=== PATIENT | male | born 1990 | race African-American/Black ===

== ENCOUNTER 2018-03-20 20:53 | Inpatient (IN) | payer OTHER ==
[2018-03-20 21:30] VITALS: BMI 24.3
--- NOTE | 2018-03-21 01:32 | HP ---
CIWA Score - Admission Criteria [facility] Guidelines: Admission for Medically Managed Detox: Requires at least one of the followin. CIWA greater than 12 2. Seizures within the past 24 hours 3. Delirium tremens within the past 24 hours 4. Hallucinations within the past 24 hours 5. Acute intervention needed for co occurring medical disorder 6. Acute intervention needed for co occurring psychiatric disorder 7. Severe withdrawal that cannot be handled at a lower level of care (continued vomiting, continued diarrhea, abnormal vital signs) requiring intravenous medication and/or fluids 8. Admission ROS S - HPI Chief Complaint: seeking rehab services for crack/cocaine dependence History of Present Illness: 27 Y.O. MALE WITH OPIOID AND CARACK/COCAINE DEPENDENCE HERE FOR REHAB. THIS IS CLIENTS FIRST ADMISSION. HE WAS REFERRED BY HIS OUT PATIENT PROGRAM [facility] WHERE HE IS ON [facility]. HE REPORTS HIS DOSE 190 MG DAILY. LDM TODAY PENDING VERIFICATION. HE IS KNOWN TO OTHER DETX/REHAB SERVICES. LAST TIME WAS 2017. REPORTS LONGEST CLEAN TIME 8 MONTHS WHILE IN A RESIDENTIAL PROGRAM [facility]. DENIES CLEAN TIME IN THE PAST YEAR. REPORTS OVERDOSE X 2, DENIES SI/HI/ AVH, SEIZURE D/O. REPORTS HOMELESSNESS, UNEMPLOYED- HRA, DENIES LEGALS. PMHX- SICKLE CELL ANEMIA TRAIT, PSYCH- DEPRESSION, INSOMNIA, ANXIETY MEDS- NONE Exam Limitations: No Limitations - Ebola screening Have you traveled outside of the country in the last 21 days: No (N) Have you had contact with anyone from an Ebola affected area: No Have you been sick,other than usual withdrawal symptoms: No Do you have a fever: No - Review of Systems Constitutional: Changes in sleep, Unintentional Wgt. Loss EENT: reports: No Symptoms Reported Respiratory: reports: No Symptoms reported Cardiac: reports: No Symptoms Reported GI: reports: Constipated : reports: No Symptoms Reported Musculoskeletal: reports: No Symptoms Reported Integumentary: reports: No Symptoms Reported Neuro: reports: No Symptoms reported Endocrine: reports: No Symptoms Reported Hematology: reports: No Symptoms Reported Psychiatric: reports: Orientated x3, Depressed Other Systems: Reviewed and Negative Patient History - Patient Medical History Hx Anemia: No Hx Asthma: No Hx Chronic Obstructive Pulmonary Disease (COPD): No Hx Cancer: No Hx Cardiac Disorders: No Hx Congestive Heart Failure: No Hx Hypertension: No Hx Hypercholesterolemia: No Hx Pacemaker: No HX Cerebrovascular Accident: No Hx Seizures: No Hx Dementia: No Hx Diabetes: No Hx Gastrointestinal Disorders: No Hx Liver Disease: No Hx Genitourinary Disorders: No Hx Sexually Transmitted Disorders: No Hx Renal Disease (ESRD): No Hx Thyroid Disease: No Hx Human Immunodeficiency Virus (HIV): No Hx Hepatitis C: No Hx Depression: Yes Hx Suicide Attempt: No Hx Bipolar Disorder: No Hx Schizophrenia: No Other Medical History: DENIES - Patient Surgical History Past Surgical History: No - PPD History Previous Implant?: Yes Documented Results: Negative w/o proof Implanted On Prior [facility] Admission?: No PPD to be Administered?: Yes - Smoking Cessation Smoking history: Current every day smoker Have you smoked in the past 12 months: Yes Aproximately how many cigarettes per day: 5 Cigars Per Day: 0 Hx Chewing Tobacco Use: No Initiated information on smoking cessation: Yes 'Breaking Loose' booklet given: 03/21/18 - Substance & Tx. History Hx Alcohol Use: No Hx Substance Use: Yes Substance Use Type: Cocaine, Prescribed (METHADONE) - Substances Abused CRACK/COCAINE Route: Smoking Frequency: 3-6 times per week Amount used: 5 BAGS Age of first use: 22 Date of Last Use: 03/20/18 Family Disease History - Family Disease History Family Disease History: Other: Father (HEROIN ADDICT/ IN RECOVERY), Mother ( SICKLE CELL ANEMIA/ ) Admission Physical Exam [facility] - Vital Signs Vital Signs: Vital Signs - 24 hr 03/20/18 21:27 Temperature 97.4 F L Pulse Rate 78 Respiratory 18 Rate Blood Pressure 118/73 - Physical General Appearance: Yes: No Apparent Distress, Appropriately Dressed, Other ( MALODUROUS) HEENTM: Yes: EOMI, Normal ENT Inspection, Normocephalic, Normal Voice, HOLLEY, Pharynx Normal Respiratory: Yes: Chest Non-Tender, Lungs Clear, Normal Breath Sounds, No Respiratory Distress, No Accessory Muscle Use Neck: Yes: No masses,lesions,Nodules, Supple, Trachea in good position Breast: Yes: Breast Exam Deferred Cardiology: Yes: Regular Rhythm, Regular Rate, S1, S2 Abdominal: Yes: Normal Bowel Sounds, Non Tender, Flat, Soft Genitourinary: Yes: Other (N/O) Back: Yes: Normal Inspection Musculoskeletal: Yes: full range of Motion, Gait Steady Extremities: Yes: Normal Capillary Refill, Normal Range of Motion, Non-Tender Neurological: Yes: superintendent storage area II-XII NML intact, Fully Oriented, Alert, Motor Strength 5/5, Normal Mood/Affect Integumentary: Yes: Dry, Warm Lymphatic: Yes: Within Normal Limits - Diagnostic (1) Cocaine abuse, uncomplicated Current Visit: Yes Status: Acute (2) Methadone maintenance therapy patient Current Visit: Yes Status: Chronic (3) Nicotine dependence Current Visit: Yes Status: Chronic Qualifiers: Nicotine product type: cigarettes Substance use status: uncomplicated Qualified Code(s): F17.210 - Nicotine dependence, cigarettes, uncomplicated (4) Drug-induced mood disorder Current Visit: Yes Status: Acute (5) Drug induced insomnia Current Visit: Yes Status: Acute Cleared for Admission [facility] - Detox or Rehab Detox Regimen/Protocol: Not Applicable Claeared for Rehab Admission: Yes S Breath Alcohol Content Breath Alcohol Content: 0 Urine Drug Screen - Results Drug Screen Negative: No Urine Drug Screen Results: MIKEY-Cocaine, MTD-Methadone Inpatient Rehab Admission - Initial Determination Are CD services needed?: Yes Free of communicable disease: Yes Not in need of hospitalization: Yes - Rehab Admission Criteria Previous failed treatment: Yes Poor recovery environment: Yes Comorbidities: Yes Lacks judgement: No Patient is meeting Inpatient Rehab admission criteria:: Yes
[2018-03-21] MEDS ORDERED: guaiFENesin/D-METHORPHAN HB 10 ML UNIT-DOSE CUPS PO PRN (01:48)
[2018-03-21] MEDS ORDERED: MAGNESIUM HYDROX 2400MG/30ML ORAL SUSPENSION 30 ML CUP PO PRN (01:48)
[2018-03-21] MEDS ORDERED: MENTHOL/PHENOL 1 EACH UD MM PRN (01:48)
[2018-03-21] MEDS ORDERED: IBUPROFEN 400 MG TABLET (FP) PO PRN (01:48)
[2018-03-21] MEDS ORDERED: MAGNESIUM CITRATE 300 ML BOTTLE PO PRN (01:48)
[2018-03-21] MEDS ORDERED: ACETAMINOPHEN 325 MG TABLET (FP) PO PRN (01:48)
[2018-03-21] MEDS ORDERED: hydrOXYzine PAMOATE 50 MG CAPSULE (FP) PO PRN (01:48)
[2018-03-21] MEDS ORDERED: P-EPHED 60MG/TRIPROLIDI 2.5MG TABLET PO PRN (01:48)
[2018-03-21] MEDS ORDERED: LOPERAMIDE HCL 2 MG CAPSULE PO PRN (01:48)
[2018-03-21] MEDS ORDERED: MAG HYDROX/AL HYDROX/SIMETH 30 ML UNIT-DOSE CUP PO PRN (01:48)
[2018-03-21] MEDS: NICOTINE 14 MG/24 HOURS TOPICAL PATCH TD SCH (10:16)
[2018-03-21] MEDS: PRENATAL VITAMINS W/ FOLIC ACID TABLET (FP) PO SCH (10:16)
[2018-03-21] MEDS: NICOTINE POLACRILEX 2 MG GUM BC PRN ×2 (10:17→21:21)
[2018-03-21] MEDS ORDERED: METHADONE HCL 10 MG TABLET PO ONE (10:19)
[2018-03-21 11:00] LABS: HEMATOCRIT 37.7 % (35.4-49); HEMOGLOBIN 12.8 GM/dL (11.7-16.9); MCH 28.7 pg (25.7-33.7); MCHC 33.9 g/dl (32.0-35.9); MEAN CELL VOLUME 84.7 fl (80-96); MEAN PLT VOLUME 7.8 fl (7.5-11.1); PLATELET COUNT 247 K/MM3 (134-434); RBC 4.46 M/mm3 (4.00-5.60); RDW 13.6 % (11.9-15.9); WHITE BLOOD COUNT 6.4 K/mm3 (4.0-10.0)
[2018-03-21 11:17] LABS: ALBUMIN 3.2 g/dl (3.4-5.0); ALK PHOS 88 U/L (45-117); ANION GAP 4 MMOL/L (8-16); BILIRUBIN,TOTAL 0.4 mg/dL (0.2-1); BLOOD UREA NITROGEN 12 mg/dL (7-18); CALCIUM 9.1 mg/dL (8.5-10.1); CHLORIDE 105 mmol/L (98-107); CO2 32 mmol/L (21-32); CREATININE 0.9 mg/dL (0.55-1.3); GLUCOSE,RANDOM 77 mg/dL (74-106); POTASSIUM 4.6 mmol/L (3.5-5.1); SGOT/AST 23 U/L (15-37); SGPT/ALT 29 U/L (13-61); SODIUM 141 mmol/L (136-145); TOT PROT 6.1 g/dl (6.4-8.2)
[2018-03-21] MEDS ORDERED: FLU VACCINE QUAD 60 MCG/0.5 ML (MDV 18-19) IM ONE (12:00)
[2018-03-21] MEDS ORDERED: METHADONE HCL 10 MG TABLET ONE (12:01)
[2018-03-21] MEDS ORDERED: METHADONE HCL 40 MG DISPERSABLE TABLET ONE (12:01)
[2018-03-21] MEDS: METHADONE 160 MG, METHADONE 30 MG PO SCH (12:21)
--- NOTE | 2018-03-21 13:23 | EKG ---
Test Reason : Blood Pressure : / mmHG Vent. Rate : 072 BPM Atrial Rate : 072 BPM P-R Int : 170 ms QRS Dur : 090 ms QT Int : 406 ms P-R-T Axes : 042 070 057 degrees QTc Int : 444 ms NORMAL SINUS RHYTHM VOLTAGE CRITERIA FOR LEFT VENTRICULAR HYPERTROPHY NO PREVIOUS ECGS AVAILABLE Confirmed by ROBERTO BOWMAN MD ([id number]) on 03/21/2018 1:23:36 PM Referred By: Confirmed By:ROBERTO BOWMAN MD
[2018-03-21 16:22] LABS: URINE APPEARANCE CLEAR; URINE BILIRUBIN NEGATIVE (<2.0 mg/dL); URINE COLOR YELLOW; URINE GLUCOSE (UA) NEGATIVE (NEGATIVE); URINE KETONE NEGATIVE (NEGATIVE); URINE LEUK ESTERASE TRACE (NEGATIVE); URINE NITRITE NEGATIVE (NEGATIVE); URINE PROTEIN NEGATIVE (NEGATIVE)
[2018-03-21] MEDS: THIAMINE HCL 100 MG TABLET (FP) PO SCH (21:20)
[2018-03-21] MEDS ORDERED: MELATONIN 5 MG TABLETS PO PRN (22:00)
[2018-03-22] MEDS ORDERED: METHADONE HCL 10 MG TABLET ONE (05:10)
[2018-03-22] MEDS ORDERED: METHADONE HCL 40 MG DISPERSABLE TABLET ONE (05:11)
[2018-03-22] MEDS ORDERED: METHADONE HCL 10 MG TABLET PO SCH (06:00)
[2018-03-22] MEDS: METHADONE 160 MG, METHADONE 30 MG PO SCH (06:45)
[2018-03-22] MEDS: PRENATAL VITAMINS W/ FOLIC ACID TABLET (FP) PO SCH (09:59)
[2018-03-22] MEDS: NICOTINE 14 MG/24 HOURS TOPICAL PATCH TD SCH (10:00)
[2018-03-22] MEDS: NICOTINE POLACRILEX 2 MG GUM BC PRN (10:01)
[2018-03-22] MEDS: THIAMINE HCL 100 MG TABLET (FP) PO SCH (21:19)
[2018-03-23] MEDS ORDERED: METHADONE HCL 10 MG TABLET ONE (04:12)
[2018-03-23] MEDS ORDERED: METHADONE HCL 40 MG DISPERSABLE TABLET ONE (04:12)
[2018-03-23] MEDS: METHADONE 160 MG, METHADONE 30 MG PO SCH (06:19)
[2018-03-23] MEDS: PRENATAL VITAMINS W/ FOLIC ACID TABLET (FP) PO SCH (10:28)
[2018-03-23] MEDS: NICOTINE 14 MG/24 HOURS TOPICAL PATCH TD SCH (10:29)
[2018-03-23] MEDS: NICOTINE POLACRILEX 2 MG GUM BC PRN ×2 (10:30→21:26)
[2018-03-23] MEDS: THIAMINE HCL 100 MG TABLET (FP) PO SCH (21:26)
[2018-03-24] MEDS ORDERED: METHADONE HCL 10 MG TABLET ONE (04:07)
[2018-03-24] MEDS ORDERED: METHADONE HCL 40 MG DISPERSABLE TABLET ONE (04:08)
[2018-03-24] MEDS: METHADONE 160 MG, METHADONE 30 MG PO SCH (06:28)
[2018-03-24] MEDS: NICOTINE POLACRILEX 2 MG GUM BC PRN ×2 (10:41→21:17)
[2018-03-24] MEDS: NICOTINE 14 MG/24 HOURS TOPICAL PATCH TD SCH (10:41)
[2018-03-24] MEDS: PRENATAL VITAMINS W/ FOLIC ACID TABLET (FP) PO SCH (10:41)
--- NOTE | 2018-03-24 11:25 | PN ---
S Progress Note Note: PT REPORTS HX OF REACTING "SENSITIVE SKIN" TO PPD IN PREVIOUS TIMES. REPORTS XRAY WAS NEGATIVE IN PREVIOUS TESTS. THIS IS PT'S FIRST TIME TO THIS FACILITY. ALERT O X 3. NAD. DENIES ANY RESPIRATORY COMPLAINTS. Vital Signs - 24 hr 03/24/18 03/24/18 03/24/18 00:30 03:30 06:47 Temperature 98.3 F Pulse Rate 57 L Respiratory 18 18 18 Rate Blood Pressure 122/72 SKIN:PPD SITE INJECTED WITH INDURATION OF 15 MM PLAN:BASELINE CXR TO BE DONE/ORDERED.
[2018-03-24] MEDS: THIAMINE HCL 100 MG TABLET (FP) PO SCH (21:17)
[2018-03-25] MEDS ORDERED: METHADONE HCL 10 MG TABLET ONE (04:06)
[2018-03-25] MEDS ORDERED: METHADONE HCL 40 MG DISPERSABLE TABLET ONE (04:06)
[2018-03-25] MEDS: METHADONE 160 MG, METHADONE 30 MG PO SCH (06:34)
[2018-03-25] MEDS: NICOTINE POLACRILEX 2 MG GUM BC PRN ×3 (06:37→21:29)
[2018-03-25] MEDS: PRENATAL VITAMINS W/ FOLIC ACID TABLET (FP) PO SCH (10:33)
[2018-03-25] MEDS: NICOTINE 14 MG/24 HOURS TOPICAL PATCH TD SCH (10:34)
[2018-03-25] MEDS: THIAMINE HCL 100 MG TABLET (FP) PO SCH (21:29)
[2018-03-26] MEDS ORDERED: METHADONE HCL 40 MG DISPERSABLE TABLET ONE (04:21)
[2018-03-26] MEDS ORDERED: METHADONE HCL 10 MG TABLET ONE (04:21)
[2018-03-26] MEDS: METHADONE 160 MG, METHADONE 30 MG PO SCH (06:20)
[2018-03-26] MEDS: NICOTINE POLACRILEX 2 MG GUM BC PRN ×3 (06:24→21:14)
[2018-03-26] MEDS: PRENATAL VITAMINS W/ FOLIC ACID TABLET (FP) PO SCH (09:53)
[2018-03-26] MEDS: NICOTINE 14 MG/24 HOURS TOPICAL PATCH TD SCH (09:53)
[2018-03-26] MEDS: THIAMINE HCL 100 MG TABLET (FP) PO SCH (21:14)
[2018-03-27] MEDS ORDERED: METHADONE HCL 10 MG TABLET ONE (05:39)
[2018-03-27] MEDS ORDERED: METHADONE HCL 40 MG DISPERSABLE TABLET ONE (05:40)
[2018-03-27] MEDS: METHADONE 160 MG, METHADONE 30 MG PO SCH (05:56)
[2018-03-27] MEDS: NICOTINE POLACRILEX 2 MG GUM BC PRN ×3 (05:59→21:26)
[2018-03-27] MEDS: NICOTINE 14 MG/24 HOURS TOPICAL PATCH TD SCH (10:03)
[2018-03-27] MEDS: PRENATAL VITAMINS W/ FOLIC ACID TABLET (FP) PO SCH (10:03)
[2018-03-27] MEDS: THIAMINE HCL 100 MG TABLET (FP) PO SCH (21:24)
[2018-03-28] MEDS ORDERED: METHADONE HCL 40 MG DISPERSABLE TABLET ONE (04:26)
[2018-03-28] MEDS ORDERED: METHADONE HCL 10 MG TABLET ONE (04:26)
[2018-03-28] MEDS ORDERED: METHADONE HCL 10 MG TABLET PO SCH (06:00)
[2018-03-28] MEDS: METHADONE 160 MG, METHADONE 30 MG PO SCH (06:15)
[2018-03-28] MEDS: NICOTINE POLACRILEX 2 MG GUM BC PRN ×2 (10:05→21:20)
[2018-03-28] MEDS: NICOTINE 14 MG/24 HOURS TOPICAL PATCH TD SCH (10:05)
[2018-03-28] MEDS: PRENATAL VITAMINS W/ FOLIC ACID TABLET (FP) PO SCH (10:05)
[2018-03-28] MEDS: THIAMINE HCL 100 MG TABLET (FP) PO SCH (21:20)
[2018-03-29] MEDS ORDERED: METHADONE HCL 10 MG TABLET ONE ×2 (04:14→04:24)
[2018-03-29] MEDS ORDERED: METHADONE HCL 40 MG DISPERSABLE TABLET ONE (04:25)
[2018-03-29] MEDS: METHADONE 160 MG, METHADONE 30 MG PO SCH (06:15)
[2018-03-29] MEDS: NICOTINE 14 MG/24 HOURS TOPICAL PATCH TD SCH (09:41)
[2018-03-29] MEDS: PRENATAL VITAMINS W/ FOLIC ACID TABLET (FP) PO SCH (09:41)
[2018-03-29] MEDS: NICOTINE POLACRILEX 2 MG GUM BC PRN ×2 (09:41→21:22)
[2018-03-29] MEDS: THIAMINE HCL 100 MG TABLET (FP) PO SCH (21:21)
[2018-03-30] MEDS ORDERED: METHADONE HCL 10 MG TABLET ONE (03:12)
[2018-03-30] MEDS ORDERED: METHADONE HCL 40 MG DISPERSABLE TABLET ONE (03:13)
[2018-03-30] MEDS: METHADONE 160 MG, METHADONE 30 MG PO SCH (06:02)
[2018-03-30] MEDS: PRENATAL VITAMINS W/ FOLIC ACID TABLET (FP) PO SCH (09:55)
[2018-03-30] MEDS: NICOTINE POLACRILEX 2 MG GUM BC PRN ×2 (09:55→21:21)
[2018-03-30] MEDS: NICOTINE 14 MG/24 HOURS TOPICAL PATCH TD SCH (09:55)
[2018-03-30] MEDS: THIAMINE HCL 100 MG TABLET (FP) PO SCH (21:20)
[2018-03-31] MEDS ORDERED: METHADONE HCL 40 MG DISPERSABLE TABLET ONE (02:22)
[2018-03-31] MEDS ORDERED: METHADONE HCL 10 MG TABLET ONE (02:22)
[2018-03-31] MEDS: METHADONE 160 MG, METHADONE 30 MG PO SCH (06:00)
[2018-03-31] MEDS: NICOTINE POLACRILEX 2 MG GUM BC PRN ×3 (06:03→21:12)
[2018-03-31] MEDS: NICOTINE 14 MG/24 HOURS TOPICAL PATCH TD SCH (10:04)
[2018-03-31] MEDS: PRENATAL VITAMINS W/ FOLIC ACID TABLET (FP) PO SCH (10:04)
[2018-03-31] MEDS: THIAMINE HCL 100 MG TABLET (FP) PO SCH (21:12)
[2018-04-01] MEDS ORDERED: METHADONE HCL 40 MG DISPERSABLE TABLET ONE (04:17)
[2018-04-01] MEDS ORDERED: METHADONE HCL 10 MG TABLET ONE (04:17)
[2018-04-01] MEDS: METHADONE 160 MG, METHADONE 30 MG PO SCH (06:08)
[2018-04-01] MEDS: NICOTINE 14 MG/24 HOURS TOPICAL PATCH TD SCH (09:58)
[2018-04-01] MEDS: PRENATAL VITAMINS W/ FOLIC ACID TABLET (FP) PO SCH (09:58)
[2018-04-01] MEDS: NICOTINE POLACRILEX 2 MG GUM BC PRN (21:10)
[2018-04-01] MEDS: THIAMINE HCL 100 MG TABLET (FP) PO SCH (21:10)
[2018-04-02] MEDS ORDERED: METHADONE HCL 10 MG TABLET ONE (03:32)
[2018-04-02] MEDS ORDERED: METHADONE HCL 40 MG DISPERSABLE TABLET ONE (03:32)
[2018-04-02] MEDS: METHADONE 160 MG, METHADONE 30 MG PO SCH (06:06)
[2018-04-02] MEDS: PRENATAL VITAMINS W/ FOLIC ACID TABLET (FP) PO SCH (10:29)
[2018-04-02] MEDS: NICOTINE POLACRILEX 2 MG GUM BC PRN ×2 (10:30→21:26)
[2018-04-02] MEDS: NICOTINE 14 MG/24 HOURS TOPICAL PATCH TD SCH (10:30)
--- NOTE | 2018-04-02 13:01 | PN ---
[facility] Progress Note Note: CHEST XRAY RESULT NO ACUTE PATHOLOGY. Laboratory Tests 03/21/18 03/21/18 03/21/18 07:50 07:50 07:50 WBC 6.4 RBC 4.46 Hgb 12.8 Hct 37.7 MCV 84.7 MCH 28.7 MCHC 33.9 RDW 13.6 Plt Count 247 MPV 7.8 Sodium 141 Potassium 4.6 Chloride 105 Carbon Dioxide 32 Anion Gap 4 L BUN 12 Creatinine 0.9 Creat Clearance w eGFR > 60 Random Glucose 77 Calcium 9.1 Total Bilirubin 0.4 AST 23 ALT 29 Alkaline Phosphatase 88 Total Protein 6.1 L Albumin 3.2 L Urine Color Urine Appearance Urine pH Ur Specific Fay Urine Protein Urine Glucose (UA) Urine Ketones Urine Blood Urine Nitrite Urine Bilirubin Urine Urobilinogen Ur Leukocyte Esterase Urine WBC (Auto) Urine RBC (Auto) RPR Titer Nonreactive 03/21/18 11:30 WBC RBC Hgb Hct MCV MCH MCHC RDW Plt Count MPV Sodium Potassium Chloride Carbon Dioxide Anion Gap BUN Creatinine Creat Clearance w eGFR Random Glucose Calcium Total Bilirubin AST ALT Alkaline Phosphatase Total Protein Albumin Urine Color Yellow Urine Appearance Clear Urine pH 6.0 Ur Specific Fay 1.016 Urine Protein Negative Urine Glucose (UA) Negative Urine Ketones Negative Urine Blood Negative Urine Nitrite Negative Urine Bilirubin Negative Urine Urobilinogen 2.0 Ur Leukocyte Esterase Trace Urine WBC (Auto) 5 Urine RBC (Auto) <1 RPR Titer Vital Signs - 24 hr 04/02/18 04/02/18 04/02/18 00:30 03:30 06:36 Temperature 98.8 F Pulse Rate 68 Respiratory 18 18 16 Rate Blood Pressure 116/70
--- NOTE | 2018-04-02 13:22 | PN ---
S Progress Note Note: REHAB DISCHARGE NOTE: PT IS SCHEDULED FOR DISCHARGE IN THE MORNING. PT SUCCESSFULLY COMPLETED REHAB. PT IS REFERRED TO [facility] ON [address], [place], [place] FOR AFTERCARE. PT ALSO REPORTS [facility] AND WILL FOLLOW UP AT [facility] FOR MEDICAL MANAGEMENT NEEDED. Vital Signs - 24 hr 04/02/18 04/02/18 04/02/18 00:30 03:30 06:36 Temperature 98.8 F Pulse Rate 68 Respiratory 18 18 16 Rate Blood Pressure 116/70 Laboratory Tests 03/21/18 03/21/18 03/21/18 07:50 07:50 07:50 WBC 6.4 RBC 4.46 Hgb 12.8 Hct 37.7 MCV 84.7 MCH 28.7 MCHC 33.9 RDW 13.6 Plt Count 247 MPV 7.8 Sodium 141 Potassium 4.6 Chloride 105 Carbon Dioxide 32 Anion Gap 4 L BUN 12 Creatinine 0.9 Creat Clearance w eGFR > 60 Random Glucose 77 Calcium 9.1 Total Bilirubin 0.4 AST 23 ALT 29 Alkaline Phosphatase 88 Total Protein 6.1 L Albumin 3.2 L Urine Color Urine Appearance Urine pH Ur Specific Sharon Urine Protein Urine Glucose (UA) Urine Ketones Urine Blood Urine Nitrite Urine Bilirubin Urine Urobilinogen Ur Leukocyte Esterase Urine WBC (Auto) Urine RBC (Auto) RPR Titer Nonreactive 03/21/18 11:30 WBC RBC Hgb Hct MCV MCH MCHC RDW Plt Count MPV Sodium Potassium Chloride Carbon Dioxide Anion Gap BUN Creatinine Creat Clearance w eGFR Random Glucose Calcium Total Bilirubin AST ALT Alkaline Phosphatase Total Protein Albumin Urine Color Yellow Urine Appearance Clear Urine pH 6.0 Ur Specific Sharon 1.016 Urine Protein Negative Urine Glucose (UA) Negative Urine Ketones Negative Urine Blood Negative Urine Nitrite Negative Urine Bilirubin Negative Urine Urobilinogen 2.0 Ur Leukocyte Esterase Trace Urine WBC (Auto) 5 Urine RBC (Auto) <1 RPR Titer NAD PLAN;FOLLOW UP WITH [facility] FOR [facility]ARE RECOMMENDED.
[2018-04-02] MEDS: THIAMINE HCL 100 MG TABLET (FP) PO SCH (21:25)
[2018-04-03] MEDS ORDERED: METHADONE HCL 10 MG TABLET ONE (05:53)
[2018-04-03] MEDS ORDERED: METHADONE HCL 40 MG DISPERSABLE TABLET ONE (05:53)
[2018-04-03] MEDS ORDERED: METHADONE 160 MG, METHADONE 30 MG PO SCH (06:00)
[2018-04-03 06:41] VITALS: BP 105/68; PULSE 63; TEMP 98.4
--- NOTE | 2018-04-03 09:19 | PN ---
[facility] Progress Note Note: PT DISCHARGED TODAY PER PLAN. ALERT O X 3. NAD. SEE D/C NOTE 04/02/18. Vital Signs - 24 hr 04/03/18 04/03/18 04/03/18 00:30 03:30 06:40 Temperature 98.4 F Pulse Rate 63 Respiratory 18 18 18 Rate Blood Pressure 105/68 FOLLOW UP RECOMMENDED.
[2018-04-03] MEDS: PRENATAL VITAMINS W/ FOLIC ACID TABLET (FP) PO SCH (10:05)
[2018-04-03] MEDS: NICOTINE POLACRILEX 2 MG GUM BC PRN (10:07)
[2018-04-03] MEDS: NICOTINE 14 MG/24 HOURS TOPICAL PATCH TD SCH (10:07)
== END 2018-04-03 13:25 | disposition home or self-care (01) | DRG 772 ==
LOC: YASAS 20:53 → Y5N 03-21 00:04
PROVIDERS: ADMIT Psychiatry & Neurology Psychiatry; ATTEND Psychiatry & Neurology Psychiatry
PROC: HZ42ZZZ Group Counseling for Substance Abuse Treatment, Cognitive-Behavioral (ICD-10-PCS; principal; 2018-03-21)
DX: F11.20 Opioid dependence, uncomplicated (principal); F14.10 Cocaine abuse, uncomplicated; F17.210 Nicotine dependence, cigarettes, uncomplicated; F19.24 Other psychoactive substance dependence with psychoactive substance-induced mood disorder; F19.282 Other psychoactive substance dependence with psychoactive substance-induced sleep disorder; D57.3 Sickle-cell trait; Z59.0 Homelessness
CPT/HCPCS: 36415; 71046-TC-FY; 80053; 81003; 81015; 85027; 86593; 90688; 93005; 93010; G0008